=== PATIENT | male | born 1975 | race American Indian/Alaskan Native ===

== ENCOUNTER 2018-10-10 23:59 | Observation (INO) | payer OTHER ==
[2018-10-11 00:04] VITALS: BMI 24.3
--- NOTE | 2018-10-11 00:28 | ED PDOC ---
Arrival/HPI - General Chief Complaint: Chest Pain Time Seen by Provider: 10/11/18 00:18 Historian: Patient - History of Present Illness Narrative History of Present Illness (Text): 10/11/18 00:27 Jeremy Brannon is a 43 year old male smoker, whose past medical history includes asthma, who presents to the Emergency department complaining of chest pain. Patient states he was at work this evening when he began experiencing intermittent chest tightness with associated light-headedness, dizziness, and occasional shortness of breath. Patient denies any fever, chills, nausea, vomiting, diarrhea, urinary symptoms, back pain, neck pain, headache, or any other complaints. Symptom Onset: Gradual Symptom Course: Unchanged, Intermittent Quality: Tightness Activities at Onset: Light Context: Work Past Medical History - Provider Review Nursing Documentation Reviewed: Yes - Cardiac Hx Cardiac Disorders: No - Pulmonary Hx Respiratory Disorders: No - Neurological Hx Transient Ischemic Attacks (TIA): Yes - HEENT Hx HEENT Disorder: No - Renal Hx Renal Disorder: No - Endocrine/Metabolic Hx Endocrine Disorders: No - Hematological/Oncological Hx Blood Disorders: No - Integumentary Hx Dermatological Disorder: No - Musculoskeletal/Rheumatological Hx Musculoskeletal Disorders: No - Gastrointestinal Hx Gastrointestinal Disorders: No - Genitourinary/Gynecological Hx Genitourinary Disorders: No - Psychiatric Hx Psychophysiologic Disorder: No Hx Substance Use: No - Anesthesia Hx Anesthesia: No Family/Social History - Physician Review Nursing Documentation Reviewed: Yes Family/Social History: Unknown Family HX Smoking Status: Former Smoker Hx Alcohol Use: No Hx Substance Use: No Allergies/Home Meds Allergies/Adverse Reactions: Allergies No Known Allergies Allergy (Verified 10/11/18 00:04) Review of Systems - Physician Review All systems were reviewed & negative as marked: Yes - Review of Systems Constitutional: Normal. absent: Fevers Eyes: Normal ENT: Normal Respiratory: SOB. absent: Cough Cardiovascular: Chest Pain Gastrointestinal: Normal. absent: Abdominal Pain, Diarrhea, Nausea, Vomiting Genitourinary Male: Normal. absent: Dysuria, Frequency, Hematuria, Urinary Output Changes Musculoskeletal: Normal. absent: Back Pain, Neck Pain Skin: Normal. absent: Rash Neurological: Normal. absent: Headache, Dizziness Endocrine: Normal Hemo/Lymphatic: Normal Psychiatric: Normal Physical Exam Vital Signs Reviewed: Yes Vital Signs Temp Pulse Resp BP Pulse Ox 10/11/18 00:00 98.8 F 75 15 164/90 H 100 Temperature: Febrile Blood Pressure: Normal Pulse: Regular Respiratory Rate: Normal Appearance: Positive for: Well-Appearing, Non-Toxic, Comfortable Pain Distress: None Mental Status: Positive for: Alert and Oriented X 3 - Systems Exam Head: Present: Atraumatic, Normocephalic Pupils: Present: PERRL Extroacular Muscles: Present: EOMI Conjunctiva: Present: Normal Mouth: Present: Moist Mucous Membranes Neck: Present: Normal Range of Motion. No: Meningeal Signs, MIDLINE TENDERNESS, Paraspinal Tenderness Respiratory/Chest: Present: Clear to Auscultation, Good Air Exchange. No: Respiratory Distress, Accessory Muscle Use Cardiovascular: Present: Regular Rate and Rhythm, Normal S1, S2. No: Murmurs Abdomen: No: Tenderness, Distention, Peritoneal Signs Back: Present: Normal Inspection Upper Extremity: Present: Normal Inspection. No: Cyanosis, Edema Lower Extremity: Present: Normal Inspection. No: Edema Neurological: Present: GCS=15, CN II-XII Intact, Speech Normal Skin: Present: Warm, Dry, Normal Color. No: Rashes Psychiatric: Present: Alert, Oriented x 3, Normal Insight, Normal Concentration Medical Decision Making ED Course and Treatment: 10/11/18 00:27 Impression: 43 year old male complaining of intermittent chest tightness, occasional shortness of breath, light-headedness, and dizziness. Plan: -- EKG -- Chest X-ray -- Labs, cardiac enzymes -- Reassess and disposition Progress Notes: Reviewed EKG, NSR at 72 bpm. LAD. Non-specific T wave changes. 10/11/18 01:30 Chest X-ray reviewed, shows no acute processes. 10/11/18 01:45 Case discussed with medical office supervisor association executive, who is aware and agrees with plan. 10/11/18 01:[address] Oviedo, who is aware and agrees with plan. Accepts pt in to hospitalist service. Pt will go to Telemetry observation for chest pain. - Lab Interpretations I have reviewed the lab results: Yes - RAD Interpretation Acquisitions Logistics Analyst: ED Physician - EKG Interpretation Interpreted by ED Physician: Yes Type: 12 lead EKG - Scribe Statement The provider has reviewed the documentation as recorded by the James Cramer Provider Scribe Attestation: All medical record entries made by the Scribe were at my direction and personally dictated by me. I have reviewed the chart and agree that the record accurately reflects my personal performance of the history, physical exam, medical decision making, and the department course for this patient. I have also personally directed, reviewed, and agree with the discharge instructions and disposition. Disposition/Present on Arrival - Present on Arrival Any Indicators Present on Arrival: No History of DVT/PE: No History of Uncontrolled Diabetes: No Urinary Catheter: No History of Decub. Ulcer: No History Surgical Site Infection Following: None - Disposition Have Diagnosis and Disposition been Completed?: Yes Diagnosis: Chest pain Disposition: HOSPITALIZED Disposition Time: 01:52 Patient Plan: Observation Condition: STABLE Discharge Instructions (ExitCare): Chest Pain (ED) Referrals: Michael Bernal MD [Primary Care Provider] - Follow up with primary Forms: Glocal (Sinhala)
[2018-10-11 00:51] LABS: HEMOGLOBIN 14.5 g/dL (14.0-18.0); MEAN CELL VOLUME 94.1 fl (80.0-105.0); MEAN CORPUSCULAR HEMOGLOBIN 31.7 pg (25.0-35.0); MEAN CORPUSCULAR HGB CONC 33.6 g/dl (31.0-37.0); MEAN PLATELET VOLUME 10.9 fl (7.0-11.0); RBC 4.58 10^6/uL (3.5-6.1); RED CELL DISTRIBUTION WIDTH 13.9 % (11.5-14.5); WHITE BLOOD COUNT 10.2 10^3/uL (4.5-11.0)
[2018-10-11 00:54] LABS: INR 0.87; PARTIAL THROMBOPLASTIN TIME 34.2 Seconds (25.1-36.5)
[2018-10-11 00:56] LABS: ALB/GLOB RATIO 1.6 (1.1-1.8); ALT/SGPT 33 U/L (7-56); AST/SGOT 22 U/L (17-59); BLOOD UREA NITROGEN 11 mg/dL (7-21); CALCIUM 10.5 mg/dL (8.4-10.5); GFR NON-AFRICAN AMERICAN > 60
[2018-10-11 00:58] LABS: PROTHROMBIN TIME 9.9 SECONDS (9.4-12.5)
[2018-10-11 01:08] LABS: TROPONIN I < 0.01 ng/mL
[2018-10-11] MEDS ORDERED: Albuterol-Ipratrop 3 mg / 0.5 (3 ml) UD IH PRN (02:33)
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
[2018-10-11 05:01] LABS: BARBITURATES, UR NEGATIVE (NEGATIVE); BENZODIAZEPINES, UR NEGATIVE (NEGATIVE); OPIATES, UR NEGATIVE (NEGATIVE); PHENCYCLIDINE, UR POSITIVE (NEGATIVE)
[2018-10-11] MEDS: Pantoprazole 40 mg EC Tab PO SCH (06:45)
[2018-10-11 08:14] LABS: BASO # 0.07 K/mm3 (0.0-2.0); BASO % 0.9 % (0.0-3.0); EOS # 0.3 (0.0-0.7); EOS % 4.3 % (1.5-5.0); GRAN # 4.09 (1.4-6.5); GRAN % 52.3 % (50.0-68.0); HEMOGLOBIN 12.9 g/dL (14.0-18.0); LYMPH # 2.8 (1.2-3.4); LYMPH % 35.2 % (22.0-35.0); MEAN CELL VOLUME 93.2 fl (80.0-105.0); MEAN CORPUSCULAR HEMOGLOBIN 30.4 pg (25.0-35.0); MEAN CORPUSCULAR HGB CONC 32.6 g/dl (31.0-37.0); MEAN PLATELET VOLUME 10.1 fl (7.0-11.0); MONO # 0.6 (0.1-0.6); MONO % 7.3 % (1.0-6.0); RBC 4.25 10^6/uL (3.5-6.1); RED CELL DISTRIBUTION WIDTH 13.9 % (11.5-14.5); WHITE BLOOD COUNT 7.8 10^3/uL (4.5-11.0)
[2018-10-11 08:20] LABS: ALB/GLOB RATIO 1.4 (1.1-1.8); ALBUMIN 4.3 g/dL (3.0-4.8); ALT/SGPT 33 U/L (7-56); AST/SGOT 25 U/L (17-59); BLOOD UREA NITROGEN 10 mg/dL (7-21); CALCIUM 9.5 mg/dL (8.4-10.5); GFR NON-AFRICAN AMERICAN > 60
[2018-10-11 08:22] LABS: HDL CHOLESTEROL 49 mg/dL (29-60)
[2018-10-11 08:31] LABS: TROPONIN I < 0.01 ng/mL
[2018-10-11 08:33] LABS: LDL CHOLESTEROL 73 mg/dL (0-129)
[2018-10-11 08:37] LABS: FREE T4 0.64 ng/dL (0.78-2.19)
--- NOTE | 2018-10-11 09:12 | RAD ---
Date of service: 10/11/2018 HISTORY: fever COMPARISON: No prior. FINDINGS: LUNGS: The lungs are well inflated and clear. PLEURA: No pleural effusions or pneumothorax. CARDIOVASCULAR: The heart is normal in size. No aortic atherosclerotic calcifications present. OSSEOUS STRUCTURES: Within normal limits for the patient's age. VISUALIZED UPPER ABDOMEN: Normal. OTHER FINDINGS: None. IMPRESSION: No active pulmonary disease.
--- NOTE | 2018-10-11 10:55 | CARD ---
APPROVED REPORT Date of service: 10/11/2018 EKG Measurement Heart [id number] <Conclusion> Normal sinus rhythm Left axis deviation Minimal voltage criteria for LVH, may be normal variant Nonspecific T wave abnormality Abnormal ECG
--- NOTE | 2018-10-11 10:58 | CARD ---
APPROVED REPORT Date of service: 10/11/2018 EKG Measurement Heart [id number] <Conclusion> Normal sinus rhythm Left axis deviation Nonspecific T wave abnormality Abnormal ECG
[2018-10-11] MEDS ORDERED: Influenza Vaccine 60 mcg/0.5 mL SYR (4YR UP) IM ONE (15:42)
[2018-10-11] MEDS ORDERED: Pneumococcal 23-Valent Vaccine IM ONE (15:42)
--- NOTE | 2018-10-11 16:13 | CON ---
DATE: 10/11/2018 CARIOLOGY CONSULTATION HISTORY: The patient is 43-year-old male, who presents with an episode of chest pain. His symptoms were described as substernal in nature. PAST MEDICAL HISTORY: The patient's past medical history is free of cardiac disease. No diabetes mellitus. No previous myocardial infarction. No hypertension. The patient is an active smoker. SOCIAL HISTORY: The patient is an active smoker and continues to do so. REVIEW OF SYSTEMS: Fourteen-point review of systems is reviewed in detail. His chest pain is now resolved. No shortness of breath. No edema. The patient's history is not of great cooperation due to the patient's lethargy. PHYSICAL EXAMINATION: VITAL SIGNS: Blood pressure is 141/88, heart rates in the 60s. NECK: Negative JVD. LUNGS: Without rales. HEART: With S1, S2. EXTREMITIES: Without edema. EKG shows normal sinus rhythm with nonspecific ST-T changes. LABORATORY DATA: Troponins are negative x2. Hemoglobin is 12.9. IMPRESSION: 1. Transient chest pain. 2. No evidence for acute coronary syndrome. 3. Questionable chronic obstructive pulmonary disease. 4. Nicotine addiction. Given these findings, there is so far no evidence for acute coronary syndrome. We will obtain a third troponin. The patient will need a stress test at some point. I have discussed with the patient about the need to stop smoking. Aries Hurt MD
[2018-10-12 00:04] VITALS: RESP 18; TEMP 97.9
[2018-10-12] MEDS: Pantoprazole 40 mg EC Tab PO SCH (05:42)
[2018-10-12 06:49] VITALS: BP 148/92; O2SAT 100
[2018-10-12 07:29] LABS: BASO # 0.06 K/mm3 (0.0-2.0); BASO % 0.7 % (0.0-3.0); EOS # 0.4 (0.0-0.7); EOS % 4.2 % (1.5-5.0); GRAN # 5.27 (1.4-6.5); GRAN % 58.4 % (50.0-68.0); HEMOGLOBIN 13.6 g/dL (14.0-18.0); LYMPH # 2.7 (1.2-3.4); LYMPH % 29.9 % (22.0-35.0); MEAN CELL VOLUME 94.6 fl (80.0-105.0); MEAN CORPUSCULAR HEMOGLOBIN 30.4 pg (25.0-35.0); MEAN CORPUSCULAR HGB CONC 32.2 g/dl (31.0-37.0); MONO # 0.6 (0.1-0.6); MONO % 6.8 % (1.0-6.0); RBC 4.47 10^6/uL (3.5-6.1); RED CELL DISTRIBUTION WIDTH 14.1 % (11.5-14.5)
[2018-10-12] MEDS ORDERED: Multivitamin Therapeutic Tab PO SCH (08:00)
[2018-10-12 08:04] LABS: ALB/GLOB RATIO 1.4 (1.1-1.8); ALBUMIN 4.2 g/dL (3.0-4.8); ALT/SGPT 25 U/L (7-56); AST/SGOT 20 U/L (17-59); BLOOD UREA NITROGEN 14 mg/dL (7-21); CALCIUM 9.7 mg/dL (8.4-10.5); GFR NON-AFRICAN AMERICAN > 60
--- NOTE | 2018-10-12 08:31 | PN ---
DATE: 10/12/2018 CARDIOLOGY FOLLOWUP SUBJECTIVE: The patient is chest pain free since last night. OBJECTIVE: VITAL SIGNS: Blood pressure is 148/92, the heart rates in the 60s. NECK: Negative JVD. LUNGS: Without rales. HEART: S1, S2. EXTREMITIES: Without edema. LABORATORY DATA: Shows troponins are negative x2. EKG reveals nonspecific ST-T changes. IMPRESSION: 1. Resolution of chest pain. 2. No evidence for acute coronary syndrome. 3. No pulmonary hypertension. 4. Echocardiogram reveals good left ventricular function. Given these findings, I have discussed with the patient about his need to stop smoking. He is willing to have Nicoderm and is motivated to stop smoking. From a cardiac perspective, the patient could be discharged. Given his cardiac risk factors, we will arrange for an outpatient stress test next week. Aries Hurt MD
[2018-10-12 12:11] VITALS: PULSE 78
--- NOTE | 2018-10-12 13:12 | CP.PCM.DIS ---
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 Referral Routine Comment: Physician Instructions: Reason For Exam: EVALUATION Transition In Care/Readmission Reduction Routine Comment: Physician Instructions: Reason For Exam: EVALUATION Time Spent in preparation of Discharge (in minutes): 45 Diagnosis - Discharge Diagnosis (1) Chest pain Status: Acute Hospital Course - Lab Results Lab Results: Most Recent Lab Values WBC 9.0 10^3/uL (4.5-11.0) 10/12/18 07:00 RBC 4.47 10^6/uL (3.5-6.1) 10/12/18 07:00 Hgb 13.6 g/dL (14.0-18.0) L 10/12/18 07:00 Hct 42.3 % (42.0-52.0) 10/12/18 07:00 MCV 94.6 fl (80.0-105.0) 10/12/18 07:00 MCH 30.4 pg (25.0-35.0) 10/12/18 07:00 MCHC 32.2 g/dl (31.0-37.0) 10/12/18 07:00 RDW 14.1 % (11.5-14.5) 10/12/18 07:00 Plt Count 275 10^3/uL (120.0-450.0) 10/12/18 07:00 MPV 11.0 fl (7.0-11.0) 10/12/18 07:00 Gran % 58.4 % (50.0-68.0) 10/12/18 07:00 Lymph % (Auto) 29.9 % (22.0-35.0) 10/12/18 07:00 Noble % (Auto) 6.8 % (1.0-6.0) H 10/12/18 07:00 Eos % (Auto) 4.2 % (1.5-5.0) 10/12/18 07:00 Baso % (Auto) 0.7 % (0.0-3.0) 10/12/18 07:00 Gran # 5.27 (1.4-6.5) 10/12/18 07:00 Lymph # (Auto) 2.7 (1.2-3.4) 10/12/18 07:00 Noble # (Auto) 0.6 (0.1-0.6) 10/12/18 07:00 Eos # (Auto) 0.4 (0.0-0.7) 10/12/18 07:00 Baso # (Auto) 0.06 K/mm3 (0.0-2.0) 10/12/18 07:00 PT 9.9 SECONDS (9.4-12.5) 10/11/18 00:15 INR 0.87 10/11/18 00:15 APTT 34.2 Seconds (25.1-36.5) 10/11/18 00:15 Sodium 140 mmol/L (132-148) 10/12/18 07:00 Potassium 4.1 mmol/L (3.6-5.0) 10/12/18 07:00 Chloride 106 mmol/L (98-107) 10/12/18 07:00 Carbon Dioxide 28 mmol/L (21-33) 10/12/18 07:00 Anion Gap 10 (10-20) 10/12/18 07:00 BUN 14 mg/dL (7-21) 10/12/18 07:00 Creatinine 0.9 mg/dl (0.8-1.5) 10/12/18 07:00 Est GFR ( Amer) > 60 10/12/18 07:00 Est GFR (Non-Af Amer) > 60 10/12/18 07:00 Random Glucose 93 mg/dL (70-110) 10/12/18 07:00 Hemoglobin A1c 5.6 % (4.2-6.5) 10/11/18 07:30 Calcium 9.7 mg/dL (8.4-10.5) 10/12/18 07:00 Magnesium 1.9 mg/dL (1.7-2.2) 10/11/18 00:18 Total Bilirubin 0.2 mg/dL (0.2-1.3) 10/12/18 07:00 AST 20 U/L (17-59) 10/12/18 07:00 ALT 25 U/L (7-56) 10/12/18 07:00 Alkaline Phosphatase 101 U/L (38-126) 10/12/18 07:00 Lactate Dehydrogenase 449 U/L (333-699) 10/11/18 00:15 Total Creatine Kinase 206 U/L (35-230) 10/11/18 00:15 Troponin I < 0.01 ng/mL 10/11/18 11:35 Total Protein 7.3 g/dL (5.8-8.3) 10/12/18 07:00 Albumin 4.2 g/dL (3.0-4.8) 10/12/18 07:00 Globulin 3.1 gm/dL 10/12/18 07:00 Albumin/Globulin Ratio 1.4 (1.1-1.8) 10/12/18 07:00 Triglycerides 51 mg/dL (35-160) 10/11/18 07:30 Cholesterol 131 mg/dL (130-200) 10/11/18 07:30 LDL Cholesterol Direct 73 mg/dL (0-129) 10/11/18 07:30 HDL Cholesterol 49 mg/dL (29-60) 10/11/18 07:30 Free T4 0.64 ng/dL (0.78-2.19) L 10/11/18 07:30 TSH 3rd Generation 2.11 mIU/mL (0.46-4.68) 10/11/18 07:30 Urine Opiates Screen Negative (NEGATIVE) 10/11/18 04:05 Urine Methadone Screen Negative (NEGATIVE) 10/11/18 04:05 Ur Barbiturates Screen Negative (NEGATIVE) 10/11/18 04:05 Ur Phencyclidine Scrn Positive (NEGATIVE) H 10/11/18 04:05 Ur Amphetamines Screen Negative (NEGATIVE) 10/11/18 04:05 U Benzodiazepines Scrn Negative (NEGATIVE) 10/11/18 04:05 U Oth Cocaine Metabols Negative (NEGATIVE) 10/11/18 04:05 U Cannabinoids Screen Negative (NEGATIVE) 10/11/18 04:05 Alcohol, Quantitative < 10 mg/dL (0-10) 10/11/18 07:30 - Hospital Course Hospital Course: Upon Admission: Patient is a 43 yo male with a past medical history of 30-pack- year smoking history and asthma presenting with chest pain that started at 11pm on 08/10/2018. He describes the chest pain as tightness and heaviness located near the left pectoralis major. He rates the pain 5-6 out of 10. The pain is sometimes associated with tingling in the upper left arm. The pain is minimally alleviated by stretching his right arm over his head and exacerbated with pressing of the left chest. Patient states that he was at work this evening and was lifting heavy weights at work. Patient denies any fever, chills, nausea, vomiting, diarrhea, urinary symptoms, back pain, neck pain, headache, or any other complaints. Hospital Course: Pt was being worked up for chest pain r/o ACS. Pts EKG in ED showed NSR @ 72bpm, with non-specific T wave changes. Pts trops were (-) x3 and cardio Dr. Hurt was consulted. Dr. Hurt cleared the pt for discharge and will be arranged for outpt cardiac stress test. Pt was educated on smoking cessation and pt was educated on nicoderm patches to help him quit. CXR done in ED showed no acute disease and pts UDS was positive for PCP. Pts TSH is wnl, as is the pts lipid panel and A1c is 5.6. Pt was re-examined and states that his chest pain completely resolved and no longer has any issues related to what brought him in. Pt was told that he was cleared by cardiology for discharge and that he should follow up for outpt stress test. Pt denies any symptoms and medical plan for discharge was explained to the pt. Pt expresses understanding and agreement with the medical plan for d/c, and all questions were addressed and answered prior to discharge. Pt was discharged on multivitamins, folate, thiamine, lisinopril and was given inhalers prior to d/c as well. Discharge Exam - Head Exam Head Exam: ATRAUMATIC, NORMAL INSPECTION, NORMOCEPHALIC - Eye Exam Eye Exam: EOMI, Normal appearance, PERRL - Respiratory Exam Respiratory Exam: Chest Wall Tenderness, Clear to PA & Lateral, NORMAL BREATHING PATTERN, UNREMARKABLE. absent: Accessory Muscle Use, Rales, Rhonchi, Respiratory Distress, Stridor - Cardiovascular Exam Cardiovascular Exam: RRR, +S1, +S2. absent: Gallop, Rubs - GI/Abdominal Exam GI & Abdominal Exam: Normal Bowel Sounds, Soft, Unremarkable. absent: Distended, Firm, Tenderness - Extremities Exam Extremities exam: normal capillary refill, normal inspection, pedal pulses present - Back Exam Back exam: NORMAL INSPECTION. absent: CVA tenderness (L), CVA tenderness (R) - Neurological Exam Neurological exam: Alert, Oriented x3 - Psychiatric Exam Psychiatric exam: Normal Affect, Normal Mood - Skin Skin Exam: Dry, Normal Color, Warm Discharge Plan - Discharge Medications Prescriptions: Albuterol Sulfate [Ventolin Hfa] 1 puff IH Q6H PRN #1 inh PRN Reason: Shortness Of Breath Folic Acid 1 mg PO DAILY #30 tab Lisinopril [Zestril] 5 mg PO DAILY #30 tab Multivitamin Therapeutic Tab [Thera Tab] 1 tab PO 0800 #30 tab Thiamine [Vitamin B1 Tab] 100 mg PO DAILY #30 tab - Follow Up Plan Condition: STABLE Disposition: HOME/ ROUTINE Instructions: Chest Pain (DC) Additional Instructions: Please follow up with your primary care doctor, Dr. Tamez, within 3-5 days of discharge. Recommend outpatient cardiac stress test which can be arranged by your primary care doctor. Please abstain from drugs (PCP, MDMA) and alcohol use especially while driving. Please abstain from tobacco use. You have been given a prescription for: 1. Multivitamin 2. Folic acid 3. Thiamine 4. Lisinopril 5mg PO Daily (for blood pressure) 5. Ventolin inhaler (1puff q6h as needed for shortness of breath) Please recheck your Blood pressure with your primary care doctor. If your symptoms return, please go to the nearest emergency department. 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 Referral Routine Comment: Physician Instructions: Reason For Exam: EVALUATION Transition In Care/Readmission Reduction Routine Comment: Physician Instructions: Reason For Exam: EVALUATION Hospital Course - Lab Results Lab Results: Most Recent Lab Values WBC 9.0 10^3/uL (4.5-11.0) 10/12/18 07:00 RBC 4.47 10^6/uL (3.5-6.1) 10/12/18 07:00 Hgb 13.6 g/dL (14.0-18.0) L 10/12/18 07:00 Hct 42.3 % (42.0-52.0) 10/12/18 07:00 MCV 94.6 fl (80.0-105.0) 10/12/18 07:00 MCH 30.4 pg (25.0-35.0) 10/12/18 07:00 MCHC 32.2 g/dl (31.0-37.0) 10/12/18 07:00 RDW 14.1 % (11.5-14.5) 10/12/18 07:00 Plt Count 275 10^3/uL (120.0-450.0) 10/12/18 07:00 MPV 11.0 fl (7.0-11.0) 10/12/18 07:00 Gran % 58.4 % (50.0-68.0) 10/12/18 07:00 Lymph % (Auto) 29.9 % (22.0-35.0) 10/12/18 07:00 Noble % (Auto) 6.8 % (1.0-6.0) H 10/12/18 07:00 Eos % (Auto) 4.2 % (1.5-5.0) 10/12/18 07:00 Baso % (Auto) 0.7 % (0.0-3.0) 10/12/18 07:00 Gran # 5.27 (1.4-6.5) 10/12/18 07:00 Lymph # (Auto) 2.7 (1.2-3.4) 10/12/18 07:00 Noble # (Auto) 0.6 (0.1-0.6) 10/12/18 07:00 Eos # (Auto) 0.4 (0.0-0.7) 10/12/18 07:00 Baso # (Auto) 0.06 K/mm3 (0.0-2.0) 10/12/18 07:00 PT 9.9 SECONDS (9.4-12.5) 10/11/18 00:15 INR 0.87 10/11/18 00:15 APTT 34.2 Seconds (25.1-36.5) 10/11/18 00:15 Sodium 140 mmol/L (132-148) 10/12/18 07:00 Potassium 4.1 mmol/L (3.6-5.0) 10/12/18 07:00 Chloride 106 mmol/L (98-107) 10/12/18 07:00 Carbon Dioxide 28 mmol/L (21-33) 10/12/18 07:00 Anion Gap 10 (10-20) 10/12/18 07:00 BUN 14 mg/dL (7-21) 10/12/18 07:00 Creatinine 0.9 mg/dl (0.8-1.5) 10/12/18 07:00 Est GFR ( Amer) > 60 10/12/18 07:00 Est GFR (Non-Af Amer) > 60 10/12/18 07:00 Random Glucose 93 mg/dL (70-110) 10/12/18 07:00 Hemoglobin A1c 5.6 % (4.2-6.5) 10/11/18 07:30 Calcium 9.7 mg/dL (8.4-10.5) 10/12/18 07:00 Magnesium 1.9 mg/dL (1.7-2.2) 10/11/18 00:18 Total Bilirubin 0.2 mg/dL (0.2-1.3) 10/12/18 07:00 AST 20 U/L (17-59) 10/12/18 07:00 ALT 25 U/L (7-56) 10/12/18 07:00 Alkaline Phosphatase 101 U/L (38-126) 10/12/18 07:00 Lactate Dehydrogenase 449 U/L (333-699) 10/11/18 00:15 Total Creatine Kinase 206 U/L (35-230) 10/11/18 00:15 Troponin I < 0.01 ng/mL 10/11/18 11:35 Total Protein 7.3 g/dL (5.8-8.3) 10/12/18 07:00 Albumin 4.2 g/dL (3.0-4.8) 10/12/18 07:00 Globulin 3.1 gm/dL 10/12/18 07:00 Albumin/Globulin Ratio 1.4 (1.1-1.8) 10/12/18 07:00 Triglycerides 51 mg/dL (35-160) 10/11/18 07:30 Cholesterol 131 mg/dL (130-200) 10/11/18 07:30 LDL Cholesterol Direct 73 mg/dL (0-129) 10/11/18 07:30 HDL Cholesterol 49 mg/dL (29-60) 10/11/18 07:30 Free T4 0.64 ng/dL (0.78-2.19) L 10/11/18 07:30 TSH 3rd Generation 2.11 mIU/mL (0.46-4.68) 10/11/18 07:30 Urine Opiates Screen Negative (NEGATIVE) 10/11/18 04:05 Urine Methadone Screen Negative (NEGATIVE) 10/11/18 04:05 Ur Barbiturates Screen Negative (NEGATIVE) 10/11/18 04:05 Ur Phencyclidine Scrn Positive (NEGATIVE) H 10/11/18 04:05 Ur Amphetamines Screen Negative (NEGATIVE) 10/11/18 04:05 U Benzodiazepines Scrn Negative (NEGATIVE) 10/11/18 04:05 U Oth Cocaine Metabols Negative (NEGATIVE) 10/11/18 04:05 U Cannabinoids Screen Negative (NEGATIVE) 10/11/18 04:05 Alcohol, Quantitative < 10 mg/dL (0-10) 10/11/18 07:30 Attending/Attestation - Attestation I have personally seen and examined this patient.: Yes I have fully participated in the care of the patient.: Yes I have reviewed all pertinent clinical information, including history, physical exam and plan: Yes Notes (Text): 10/12/18 17:06 43 year old male with past medical history of rupa, tobacco use and substance abuse who presented with complaint of chest pain and shortness of breath. Serial cardiac enzymes were negative and ACS was ruled out. He was seen by cardiology who recommended outpatient stress test. He was counselled on smoking cessation. Urine drug screen was positive for PCP; he was counselled on risks of continued substance abuse. He is started on lisinopril for hypertension. Patient is discharged home to follow up with pmd. Follow up with cardiology for outpatient stress test. Counselled on smoking cessation. Counselled on risks of continued substance abuse. Natalie Johnson MD Hospitalist.
--- NOTE | 2018-10-14 13:02 | CARD ---
APPROVED REPORT Date of service: 10/11/2018 EXAM: Two-dimensional and M-mode echocardiogram with Doppler and color Doppler. INDICATION Chest Pain 2D DIMENSIONS Left Atrium (2D)3.6 (1.6-4.0cm)IVSd1.4 (0.7-1.1cm) LVDd4.4 (3.9-5.9cm)PWd1.4 (0.7-1.1cm) LVDs3.3 (2.5-4.0cm)FS (%) 25.3 % LVEF (%)50.1 (>50%) M-Mode DIMENSIONS Aortic Root2.70 (2.2-3.7cm)Aortic Cusp Exc.1.80 (1.5-2.0cm) Aortic Valve AoV Peak Cnrauhsn468.0cm/Abraham Peak GR.8mmHg Mitral Valve MV E Himekyej22.8cm/sMV A Nkxrymvc39.8cm/sE/A ratio1.5 TDI E/Lateral E'0.0E/Medial E'0.0 Tricuspid Valve TR Peak Oblvldoe093vh/sRAP [id number] Peak Gr.17mmHg [id number] LEFT VENTRICLE There is mild concentric left ventricular hypertrophy. The left ventricular function is normal. The left ventricular ejection fraction is within the normal range. RIGHT VENTRICLE The right ventricle is normal size. ATRIA The left atrium is mildly dilated. The right atrium size is normal. AORTIC VALVE The aortic valve is thickened but opens well. MITRAL VALVE The mitral valve is thickened but opens well. TRICUSPID VALVE The tricuspid valve leaflets are thickened , but open well. There is trace to mild tricuspid regurgitation. There is no pulmonary hypertension. PULMONIC VALVE The pulmonic valve is mildly thickened. PERICARDIAL EFFUSION There is no pericardial effusion. <Conclusion> Low Normal LV systolic function Mild LVH Dilated LA Mild TR no pulmonary hypertension
== END 2018-10-12 12:51 | disposition home or self-care (01) ==
LOC: ED 23:59 → ERH 10-11 01:48 → MERGE 10-11 01:48 → ERH 10-11 14:15 → 3RNO 10-11 16:39
PROVIDERS: ADMIT Hospitalist; ATTEND Internal Medicine
DX: R07.89 Other chest pain (principal); I10 Essential (primary) hypertension; F17.210 Nicotine dependence, cigarettes, uncomplicated; F10.10 Alcohol abuse, uncomplicated; F43.10 Post-traumatic stress disorder, unspecified; J45.909 Unspecified asthma, uncomplicated; R13.10 Dysphagia, unspecified; Z83.3 Family history of diabetes mellitus
CPT/HCPCS: 36415; 71045; 80053; 80061; 80320; 80324; 80345; 80346; 80349; 80353; 80358; 80361; 82550; 83036; 83615; 83735; 83992; 84439; 84443; 84484; 85025; 85027; 85610; 85730; 93005; 93306; 96372; 99284; G0378; J1644

== ENCOUNTER 2019-01-19 00:08 | Emergency (ER) | payer OTHER ==
[2019-01-19 00:11] VITALS: BMI 25.1
[2019-01-19 00:19] VITALS: RESP 18; TEMP 98.2
--- NOTE | 2019-01-19 00:32 | ED PDOC ---
Arrival/HPI - General Chief Complaint: Palpitations Time Seen by Provider: 01/19/19 00:10 Historian: Patient - History of Present Illness Narrative History of Present Illness (Text): 01/19/19 00:32 Jeremy Brannon is a 43 year old male smoker, whose past medical history includes asthma, who presents to the Emergency department complaining of chest pain. Patient states he has been experiencing left-sided chest pain, worsened wi th movement, since earlier this evening while laying in bed. Patient described pain as a sharp sensation. Patient denies any fever, chills, shortness of breath, nausea, vomiting, diarrhea, urinary symptoms, back pain, neck pain, headache, dizziness, or any other complaints. Symptom Onset: Gradual Symptom Course: Unchanged Activities at Onset: Light Context: Home Past Medical History - Provider Review Nursing Documentation Reviewed: Yes - Infectious Disease Hx of Infectious Diseases: None - Cardiac Hx Hypertension: Yes - Pulmonary Hx Respiratory Disorders: Yes (SMOKES PPD) Hx Asthma: Yes - Neurological Hx Neurological Disorder: Yes Hx Transient Ischemic Attacks (TIA): Yes - HEENT Hx HEENT Disorder: No - Renal Hx Renal Disorder: No - Endocrine/Metabolic Hx Endocrine Disorders: No - Hematological/Oncological Hx Blood Disorders: No - Integumentary Hx Dermatological Disorder: Yes (TATTOOS) - Musculoskeletal/Rheumatological Hx Musculoskeletal Disorders: No Hx Falls: Yes - Gastrointestinal Hx Gastrointestinal Disorders: No - Genitourinary/Gynecological Hx Genitourinary Disorders: No - Psychiatric Hx Psychophysiologic Disorder: No Hx Substance Use: No - Surgical History Hx Orthopedic Surgery: Yes (L leg surgery) Other/Comment: L knee surgery - Anesthesia Hx Anesthesia: Yes Hx Anesthesia Reactions: No Hx Malignant Hyperthermia: No - Suicidal Assessment Feels Threatened In Home Enviroment: No Family/Social History - Physician Review Nursing Documentation Reviewed: Yes Family/Social History: Unknown Family HX Smoking Status: Light Smoker < 10 Cigarettes Daily Hx Alcohol Use: Yes Frequency of alcohol use: Socially Hx Substance Use: No Allergies/Home Meds Allergies/Adverse Reactions: Allergies No Known Allergies Allergy (Verified 01/19/19 00:10) Home Medications: Home Meds Medication Instructions Recorded Confirmed No Known Home Med 01/19/19 01/19/19 Review of Systems - Physician Review All systems were reviewed & negative as marked: Yes - Review of Systems Constitutional: Normal. absent: Fevers Eyes: Normal ENT: Normal Respiratory: Normal. absent: SOB, Cough Cardiovascular: Chest Pain Gastrointestinal: Normal. absent: Abdominal Pain, Diarrhea, Nausea, Vomiting Genitourinary Male: Normal. absent: Dysuria, Frequency, Hematuria, Urinary Output Changes Musculoskeletal: Normal. absent: Back Pain, Neck Pain Skin: Normal. absent: Rash Neurological: Normal. absent: Headache, Dizziness Endocrine: Normal Hemo/Lymphatic: Normal Psychiatric: Normal Physical Exam Vital Signs Reviewed: Yes Vital Signs Temp Pulse Resp BP Pulse Ox 01/19/19 00:29 160/85 H 01/19/19 00:17 98.2 F 103 H 18 175/108 H 98 Temperature: Afebrile Blood Pressure: Hypertensive Pulse: Regular Respiratory Rate: Normal Appearance: Positive for: Well-Appearing, Non-Toxic, Comfortable Pain Distress: None Mental Status: Positive for: Alert and Oriented X 3 - Systems Exam Head: Present: Atraumatic, Normocephalic Pupils: Present: PERRL Extroacular Muscles: Present: EOMI Conjunctiva: Present: Normal Mouth: Present: Moist Mucous Membranes Neck: Present: Normal Range of Motion Respiratory/Chest: Present: Clear to Auscultation, Good Air Exchange. No: Respiratory Distress, Accessory Muscle Use Cardiovascular: Present: Regular Rate and Rhythm, Normal S1, S2. No: Murmurs Abdomen: No: Tenderness, Distention, Peritoneal Signs Back: Present: Normal Inspection Upper Extremity: Present: Normal Inspection. No: Cyanosis, Edema Lower Extremity: Present: Normal Inspection. No: Edema Neurological: Present: GCS=15, CN II-XII Intact, Speech Normal Skin: Present: Warm, Dry, Normal Color. No: Rashes Psychiatric: Present: Alert, Oriented x 3, Normal Insight, Normal Concentration Medical Decision Making ED Course and Treatment: 01/19/19 00:32 Impression: 43 year old male complaining of left-sided chest pain, worsened with movement. Plan: -- EKG -- Chest X-ray -- Labs, cardiac enzymes -- Urinalysis, urine drug screen -- Reassess and disposition Progress Notes: Reviewed EKG, sinus tachycardia at 101 bpm. LVH. Non-specific T wave changes. Chest X-ray reviewed, shows no acute processes. - Lab Interpretations I have reviewed the lab results: Yes - RAD Interpretation Practice Managers: ED Physician - EKG Interpretation Interpreted by ED Physician: Yes Type: 12 lead EKG - Scribe Statement The provider has reviewed the documentation as recorded by the Scribe Kiesha Cramer Provider Scribe Attestation: All medical record entries made by the Scribe were at my direction and pe rsonally dictated by me. I have reviewed the chart and agree that the record accurately reflects my personal performance of the history, physical exam, medical decision making, and the department course for this patient. I have also personally directed, reviewed, and agree with the discharge instructions and disposition. Disposition/Present on Arrival - Present on Arrival Any Indicators Present on Arrival: No History of DVT/PE: No History of Uncontrolled Diabetes: No Urinary Catheter: No History of Decub. Ulcer: No History Surgical Site Infection Following: None - Disposition Have Diagnosis and Disposition been Completed?: Yes Diagnosis: Chest pain Disposition: HOME/ ROUTINE Disposition Time: 06:30 Condition: STABLE Discharge Instructions (ExitCare): Chest Pain (ED) Additional Instructions: follow up with dr frazier for your stress test Referrals: Michael Bernal MD [Primary Care Provider] - Follow up with primary Aries Frazier MD [Staff Provider] - Follow up with primary Forms: [facility] [facility] (Irish), WORK NOTE
[2019-01-19 00:41] VITALS: O2SAT 100
[2019-01-19 00:48] LABS: BASO # 0.05 K/mm3 (0.0-2.0); BASO % 0.5 % (0.0-3.0); EOS # 0.2 (0.0-0.7); EOS % 2.4 % (1.5-5.0); HEMOGLOBIN 14.1 g/dL (14.0-18.0); LYMPH # 3.4 (1.2-3.4); MEAN CELL VOLUME 92.8 fl (80.0-105.0); MEAN CORPUSCULAR HEMOGLOBIN 30.9 pg (25.0-35.0); MEAN CORPUSCULAR HGB CONC 33.3 g/dl (31.0-37.0); MEAN PLATELET VOLUME 10.9 fl (7.0-11.0); MONO # 0.6 (0.1-0.6); RBC 4.57 10^6/uL (3.5-6.1); RED CELL DISTRIBUTION WIDTH 14.7 % (11.5-14.5); WHITE BLOOD COUNT 9.9 10^3/uL (4.5-11.0)
[2019-01-19 00:58] LABS: ALB/GLOB RATIO 1.4 (1.1-1.8); ALBUMIN 4.7 g/dL (3.0-4.8); ALT/SGPT 15 U/L (7-56); AST/SGOT 25 U/L (17-59); BLOOD UREA NITROGEN 13 mg/dL (7-21); CALCIUM 9.5 mg/dL (8.4-10.5); GFR NON-AFRICAN AMERICAN > 60
[2019-01-19 00:59] LABS: INR 0.95; PARTIAL THROMBOPLASTIN TIME 37.1 Seconds (26.9-38.3); PROTHROMBIN TIME 10.6 SECONDS (9.4-12.5)
[2019-01-19 01:03] LABS: D DIMER < 200 ng/mlDDU (0-243)
[2019-01-19 01:10] LABS: TROPONIN I < 0.01 ng/mL
[2019-01-19 01:15] LABS: CK-MB 0.7 ng/mL (0.0-3.6)
[2019-01-19 01:38] LABS: PH,URINE 7.5 (4.7-8.0); URINE BILIRUBIN NEGATIVE (NEGATIVE); URINE BLOOD NEGATIVE (NEGATIVE); URINE GLUCOSE (UA) NEGATIVE (NEGATIVE); URINE LEUKOCYTE ESTERASE NEGATIVE Leu/uL (NEGATIVE); URINE PROTEIN TRACE mg/dL (<30 mg/dL); URINE UROBILINOGEN 0.2 E.U./dL (<1 E.U./dL)
[2019-01-19 01:39] LABS: URINE APPEARANCE CLEAR (CLEAR); URINE COLOR YELLOW (YELLOW)
[2019-01-19 02:01] LABS: URINE EPITHELIAL CELLS 0 - 2 /hpf (0-5); URINE RBC 0 - 2 /hpf (0-2); URINE WBC 0 - 2 /hpf (0-6)
[2019-01-19 02:02] LABS: BARBITURATES, UR NEGATIVE (NEGATIVE); BENZODIAZEPINES, UR NEGATIVE (NEGATIVE); OPIATES, UR NEGATIVE (NEGATIVE); PHENCYCLIDINE, UR POSITIVE (NEGATIVE)
[2019-01-19 06:33] VITALS: BP 145/74; PULSE 85
--- NOTE | 2019-01-19 10:48 | CARD ---
APPROVED REPORT Date of service: 01/19/2019 EKG Measurement Heart [id number] <Conclusion> Sinus tachycardia Minimal voltage criteria for LVH, may be normal variant Nonspecific T wave abnormality Abnormal ECG
--- NOTE | 2019-01-19 12:33 | RAD ---
Date of service: 01/19/2019 HISTORY: Chest pain. COMPARISON: 10/11/2018 FINDINGS: LUNGS: No active pulmonary disease. PLEURA: No significant pleural effusion identified, no pneumothorax apparent. CARDIOVASCULAR: No atherosclerotic calcification present Normal. OSSEOUS STRUCTURES: No significant abnormalities. VISUALIZED UPPER ABDOMEN: Normal. OTHER FINDINGS: None. IMPRESSION: No active disease. No significant interval change compared to the prior examination(s).
== END 2019-01-19 06:20 | disposition home or self-care (01) ==
LOC: ED 00:08
DX: R07.9 Chest pain, unspecified (principal); I10 Essential (primary) hypertension; Z86.73 Personal history of transient ischemic attack (TIA), and cerebral infarction without residual deficits; F17.210 Nicotine dependence, cigarettes, uncomplicated
CPT/HCPCS: 71045; 80053; 80320; 80324; 80345; 80346; 80349; 80353; 80358; 80361; 81001; 82550; 82553; 83615; 83735; 83992; 84484; 85025; 85378; 85610; 85730; 93005; 96374; 99284; J1885

== ENCOUNTER → 2019-01-31 | Outpatient (CLI) | payer OTHER | LOC: LAB 11:44 ==